=== PATIENT | female | born 1970 | race Caucasian/White ===

== ENCOUNTER 2016-12-31 09:38 | Observation (INO) | payer OTHER ==
--- NOTE | 2016-12-30 18:31 | GHP ---
[f rep st] HISTORY AND PHYSICAL DATE OF ADMISSION: 12/31/2016 CHIEF COMPLAINT: Right-sided postprandial abdominal pain. HISTORY OF PRESENT ILLNESS: The patient is a 46-year-old healthy female who presents today complain ing of 2-3 months of right upper quadrant pain that wrapped around her right flank to the right side of her back. Symptoms of heartburn and reflux, constipation and nausea that is worse when eating f atty foods. She denies diarrhea, vomiting, and signs of jaundice. Ultrasound performed 12/09/2016 demonstrated sludge versus cholelithiasis without gallbladder wall thickening or pericholecystic flu id, and mild dilatation of the common bile duct. She has a significant family history of gallstones requiring cholecystectomy. Prior abdominal surgeries include appendectomy and section. PAST MEDICAL HISTORY: Anxiety, lumbar pain, narcotic dependence, TMJ pain, dysfunction syndrome. PAST SURGICAL HISTORY: Appendectomy, tonsillectomy, section. MEDICATIONS: Buprenorphine/naloxone 8-2mg sublingual. ALLERGIES: No known drug allergies. SOCIAL HISTORY: Alcohol: Never. Illicit substances: Never. Former tobacco user-quit in 2012 aft er 10 pack years. REVIEW OF SYSTEMS: All other negative besides mentioned in the HPI. PHYSICAL EXAMINATION: GENERAL: Well appearing, thin, nontoxic appearing female. HEENT: Normoceph alic, atraumatic. Pupils round and reactive. CARDIAC: Regular rate and rhythm. RESPIRATORY: [place] ar to auscultation bilaterally. No increased work of breathing. ABDOMEN: Soft, nondistended, mild tender to deep palpation in the right upper quadrant. No guarding or rebound tenderness. Positive Kohler's sign. MUSCULOSKELETAL: Ambulate independently. Full range of motion of all extremities. NEURO: Alert and oriented, no apparent distress. PSYCH: Normal mood and affect. ASSESSMENT: Cholelithiasis. The patient is a 46-year-old female presenting with signs and symptoms of cholelithiasis. Ultrasound demonstrates cholelithiasis. The patient is a candidate for a cachorro cystectomy. PLAN: The risks and benefits of laparoscopic cholecystectomy were reviewed and discussed. The jose ent understands, and her questions were answered to her satisfaction. She wishes to proceed with th e surgery. Specific risks that were discussed were bleeding, infection, damage to surrounding struc tures, bile leak. /[id number]/MODL
[~2016-12-31 09:38] MED LIST: cefOXitin SODIUM 2 GM in D5W 100 ML IV ONE
[2016-12-31] MEDS ORDERED: LR 1,000 ML IV ONE (10:18)
[2016-12-31] MEDS ORDERED: LIDOCAINE 1% 2 ML INJ ID PRN (10:18)
[2016-12-31 11:09] LABS: ALBUMIN 4.2 g/dL (3.5-5.0); BILIRUBIN,TOTAL 0.8 mg/dL (0.1-1.4); BILIRUBIN-CONJUGATED 0.4 mg/dL (0.0-0.5); BILIRUBIN-UNCONJUGATED 0.4 mg/dL (0.0-1.1); TOTAL PROTEIN 6.9 g/dL (6.3-8.2)
--- NOTE | 2016-12-31 11:57 | PDHPUP ---
History & Physical Update H&P update statement: This history and physical update is based on an assessment of the patient which was completed after admission or registration (within 24 hours), but prior to the surgery/procedure. H&P update: H&P reviewed & patient examined, no change in patient's condition since H&P completed
[2016-12-31] MEDS ORDERED: HEPARIN 1000 UNIT/1 ML MDV ONE (12:41)
[2016-12-31] MEDS ORDERED: ceFAZolin 1 GM/5 ML SYR ONE (12:41)
[2016-12-31] MEDS ORDERED: BUPIVACAINE 0.5% 30 ML SDV ONE (12:41)
[2016-12-31] MEDS ORDERED: MIDAZOLAM 2 MG/2 ML VIAL ONE (14:37)
[2016-12-31] MEDS ORDERED: MIDAZOLAM 2 MG/2 ML VIAL IVP ONE (14:38)
[2016-12-31] MEDS ORDERED: fentaNYL 100 MCG/2 ML INJ ONE ×2 (14:45→15:47)
[2016-12-31] MEDS ORDERED: REMIFENTANIL HCL 1 MG VIAL ONE (14:45)
[2016-12-31] MEDS ORDERED: PROPOFOL 200 MG/20 ML VIAL ONE (14:46)
[2016-12-31] MEDS ORDERED: PROPOFOL/EMULSION 500 MG/50 ML BOTTLE IV ONE (14:46)
[2016-12-31] MEDS ORDERED: DEXAMETHASONE 4 MG/ML VIAL ONE (14:46)
[2016-12-31] MEDS ORDERED: ROCURONIUM 50 MG/5 ML VIAL ONE (14:46)
[2016-12-31] MEDS ORDERED: LIDOCAINE 2% 5 ML SDV ONE (14:48)
[2016-12-31] MEDS ORDERED: PHENYLEPHRINE HCL 100 MCG/ML SYR ONE (15:07)
--- NOTE | 2016-12-31 15:10 | PDANEPAE ---
ANE Past Medical History - Cardiovascular History Hx Hypertension: No Hx Arrhythmias: No Hx Chest Pain: No Hx Coronary Artery / Peripheral Vascular Disease: No Hx CHF / Valvular Disease: No Hx Palpitations: No - Pulmonary History Hx COPD: No Hx Asthma/Reactive Airway Disease: No Hx Recent Upper Respiratory Infection: No Hx Oxygen in Use at Home: No Hx Sleep Apnea: No Sleep Apnea Screening Result - Last Documented: Negative - Neurologic History Hx Cerebrovascular Accident: No Hx Seizures: No Hx Dementia: No - Endocrine History Hx Diabetes: No Hypothyroid: No Hyperthyroid: No Obesity: no - Renal History Hx Renal Disorders: No - Liver History Hx Hepatic Disorders: No - Neurological & Psychiatric Hx Hx Neurological and Psychiatric Disorders: No - Cancer History Hx Cancer: No - Congenital Disorder History Hx Congenital Disorders: No - GI History GERD: no Hx Gastrointestinal Disorders: Yes Gastrointestinal History Comment: GALL STONES - Other Health History Other Health History: CHRONIC SCIATICA HAD PRE GIOVANNI. WAS DOING PAIN MANAGEMENT PREV - Chronic Pain History Chronic Pain: Yes (GI) - Surgical History Prior Surgeries: . APPY. TONSILLECTOMY ANE Review of Systems - Exercise capacity METS (RN): 4 METS ANE Patient History - Allergies Allergies/Adverse Reactions: No Known Drug Allergies Allergy (Verified 12/29/16 17:25) - Home Medications Home Medications: SUBOXONE 2 MG-0.5 MG TABLET DAILY06 12/30/16 [Last Taken 12/29/16] - NPO status NPO Since - Liquids (Date): 12/31/16 NPO Since - Liquids (Time): 06:00 NPO Since - Solids (Date): 12/30/16 NPO Since - Solids (Time): 18:00 - Anes Hx Anes Hx: no prior problems - Smoking Hx Smoking Status: Former smoker ANE Labs/Vital Signs - Vital Signs Blood Pressure: 123/75 Heart Rate: 62 Respiratory Rate: 16 O2 Sat (%): 96 Height: 160.02 cm Weight: 52.163 kg ANE Physical Exam - Airway Neck exam: FROM Mallampati Score: Class 2 Mouth exam: normal dental/mouth exam - Pulmonary Pulmonary: no respiratory distress, no rales or rhonchi, clear to auscultation - Cardiovascular Cardiovascular: regular rate and rhythym - ASA Status ASA Status: II ANE Anesthesia Plan Anesthesia Plan: general endotracheal anesthesia
[2016-12-31] MEDS ORDERED: ONDANSETRON 4 MG/2 ML VIAL IVP PRN (15:11)
[2016-12-31] MEDS ORDERED: D5W LR 500 ML IV PRN (15:11)
[2016-12-31] MEDS ORDERED: ACETAMINOPHEN 500 MG TAB PO PRN (15:11)
[2016-12-31] MEDS ORDERED: fentaNYL 100 MCG/2 ML INJ IVP PRN (15:11)
[2016-12-31] MEDS ORDERED: HYDROmorphONE/DILAUDID 1 MG/ML SYR IVP PRN (15:11)
[2016-12-31] MEDS ORDERED: NALOXONE HCL 0.4 MG/ML INJ IVP PRN (15:11)
[2016-12-31] MEDS ORDERED: HYDROCODONE/APAP 5/325 TAB PO PRN (15:11)
[2016-12-31] MEDS ORDERED: MEPERIDINE 25 MG/ML SYR IVP PRN (15:11)
[2016-12-31] MEDS ORDERED: OXYCODONE/APAP 5/325 TAB PO PRN (15:11)
[2016-12-31] MEDS ORDERED: PROMETHAZINE HCL 25 MG/ML INJ IVP PRN (15:11)
[2016-12-31] MEDS ORDERED: epHEDrine SULFATE 10 MG/ML SYR ONE (15:22)
[2016-12-31] MEDS ORDERED: KETOROLAC 30 MG/1 ML SDV ONE (15:39)
[2016-12-31] MEDS ORDERED: GLYCOPYRROLATE 0.2 MG/1 ML VIAL ONE ×2 (15:44)
[2016-12-31] MEDS ORDERED: SUGAMMADEX SODIUM 200 MG/2 ML VIAL IVP ONE (15:44)
[2016-12-31] MEDS ORDERED: KETOROLAC 30 MG/1 ML SDV IVP PRN ×2 (15:56→17:39)
--- NOTE | 2016-12-31 15:56 | POSTOPPROG ---
Post Op Note Date of Operation: 12/31/16 Surgeon: Hilario Turcios Hand Icer: May De Jesus Anesthesiologist: Osmel Anesthesia: GET(General Endotracheal) Pre-op Diagnosis: Cholelithiasis Post-op Diagnosis: same Indication: RUQ pain, nausea Procedure: Laproscopic cholecystectomy Findings: gallstone gallbladder Inf/Abcess present in the surg proc area at time of surgery?: No Depth: Organ Space EBL: Minimal
[2016-12-31] MEDS ORDERED: PROMETHAZINE HCL 25 MG/ML INJ ONE (16:06)
--- NOTE | 2016-12-31 17:08 | POSTANESTH ---
Post Anesthetic Evaluation Cardiovascular Status: Normal, Stable Respiratory Status: Normal, Stable Level of Consciousness/Mental Status: Can Participate in Eval Pain Control: Adequate, Prn Tx Ordered Nausea/Vomiting Control: Adequate, Prn Tx Ordered Complications Possibly Related to Anesthesia: None Noted
[2016-12-31] MEDS ORDERED: NS 1,000 ML IV SCH (17:45)
[2016-12-31] MEDS: KETOROLAC 15 MG/1 ML SDV IVP PRN (17:51)
[2016-12-31 19:03] LABS: ALANINE AMINOTRANSFERASE 38 IU/L (9-52); ALBUMIN 4.1 g/dL (3.5-5.0); ALKALINE PHOSPHATASE 45 IU/L (38-126); ANION GAP 9 mEq/L (8-16); ASPARTATE AMINOTRANSFERASE 46 IU/L (14-46); BILIRUBIN,TOTAL 0.8 mg/dL (0.1-1.4); CALCIUM 9.7 mg/dL (8.5-10.4); CARBON DIOXIDE 25 mEq/l (22-31); CHLORIDE 100 mEq/L (97-110); CREATININE 0.8 mg/dL (0.6-1.0); GLOMERULAR FILTRATION RATE > 60; GLUCOSE 97 mg/dL (70-100); POTASSIUM 4.2 mEq/L (3.5-5.2); SODIUM 134 mEq/L (134-144); TOTAL PROTEIN 6.8 g/dL (6.3-8.2)
[2016-12-31] MEDS: HYDROmorphONE/DILAUDID 1 MG/ML SYR IVP PRN ×2 (20:06→23:31)
[2016-12-31 23:38] VITALS: TEMP 98.3
[2017-01-01] MEDS: KETOROLAC 15 MG/1 ML SDV IVP PRN (03:29)
[2017-01-01 07:55] VITALS: BP 94/64; PULSE 60; RESP 16; O2SAT 94
[2017-01-01] MEDS: HYDROmorphONE/DILAUDID 1 MG/ML SYR IVP PRN (08:33)
[2017-01-01] MEDS ORDERED: oxyCODONE IR 5 MG TAB PO PRN (09:46)
--- NOTE | 2017-01-01 11:03 | PDDCSUM ---
Discharge Summary Discharge Summary: DISCHARGE SUMMARY Date of Admission December 31 Date of Discharge January 01 DISCHARGE DIAGNOSES -cholecystitis HOSPITAL COURSE The patient was taken to the operating room on the for uneventful laparoscopic cholecystectomy. She was subsequently taken to the postanesthesia unit and then the general medical floor. Her pain was well controlled initially an IV narcotics and subsequently transitioned to orals which was well tolerated. Her diet was advanced and she was tolerating regular diet on day of discharge. She was discharged home in stable condition on the morning of the . DISCHARGE MEDICATIONS All medications were reconciled, her Suboxone was held. She was given a prescription for oxycodone for pain on discharge. DISPOSITION Home FOLLOW UP Follow up with Dr. Poole in a week to discuss restarting Suboxone, follow up with Dr. Turcios in 10-14 days for routine postoperative visit
[2017-01-02] MEDS ORDERED: ENOXAPARIN 40 MG/0.4 ML SYR SC SCH (09:00)
== END 2017-01-01 11:39 | disposition home or self-care (01) ==
LOC: FSGY 09:38 → F3E 15:56 → F1N 16:51
PROVIDERS: ADMIT Surgery; ATTEND Surgery
PROC: 0FT44ZZ Resection of Gallbladder, Percutaneous Endoscopic Approach (ICD-10-PCS; principal; 2016-12-31 11:30)
DX: K80.10 Calculus of gallbladder with chronic cholecystitis without obstruction (principal); D18.1 Lymphangioma, any site
CPT/HCPCS: 47562; G0378; J0694; J1100; J1170; J1885; J2250; J2370; J2550; J2704; J3010

== ENCOUNTER → 2018-01-31 | Outpatient (CLI) | payer OTHER | LOC: FIMAGING 13:46 | PROVIDERS: ATTEND Internal Medicine | DX: Z12.31 Encounter for screening mammogram for malignant neoplasm of breast (principal) ==